=== PATIENT | female | born 2000 | race African-American/Black ===

== ENCOUNTER 2019-04-08 11:14 | Emergency (ER) | payer BC ==
[~2019-04-08] VITALS: Ht 175.3 cm; Wt 125.0 kg
[2019-04-08 12:15] LABS: CLARITY URINE CLOUDY (CLEAR); COLOR URINE YELLOW (YELLOW); KETONES URINE NEGATIVE (NEGATIVE); LEUKOCYTE ESTERASE URINE 3+ (NEGATIVE); NITRITE URINE NEGATIVE (NEGATIVE); OCCULT BLOOD URINE NEGATIVE (NEGATIVE); PH URINE 5.5 (4.5-8.0); PROTEIN URINE NEGATIVE (NEGATIVE); SPECIFIC GRAVITY URINE 1.012 (1.005-1.030); UROBILINOGEN URINE 0.2 E.U./dL (0.2-1.0)
[2019-04-08 13:09] VITALS: BP 150/60
[2019-04-09 13:15] LABS: HIV SCREEN 4G Non Reactive (Non Reactive)
[2019-04-10 04:17] LABS: CHLAMYDIA TRACHOMATIS NAA Negative (Negative); NEISSERIA GONORRHOEAE NAA Negative (Negative)
== END 2019-04-08 13:09 | disposition home or self-care (01) ==
LOC: ER 11:14
DX: N76.0 Acute vaginitis (principal); N39.0 Urinary tract infection, site not specified
CPT/HCPCS: 81025; 86592; 87077; 87186; 87210; 87389; 87491; 87591; 99283